=== PATIENT | female | born 1955 | race Caucasian/White ===

== ENCOUNTER 2018-01-24 09:10 | Emergency (ER) | payer OTHER ==
[2018-01-24] MEDS ORDERED: IPRATRPIUM/ALBUTEROL 0.5/2.5MG 3 ML NEBU. NEB ONE (09:15)
--- NOTE | 2018-01-24 09:26 | EKG ---
[address] [address] Test Date: 2018-01-24 Test Time: 09:20:46 Pat Name: BENITEZ HAYNES Department: Room: Gender: F Supervisor Lens Generating: NOREEN : 1955 Requested By: KILO DENG Order Number: [id number] Reading MD: Renan Cook MD Measurements Intervals [place] Rate: 70 P: 29 ND: 134 QRS: -3 QRSD: 84 T: 24 QT: 432 QTc: 470 Interpretive Statements SINUS RHYTHM Electronically Signed On 01-26-2018 11:43:59 CDT by Renan Cook MD
[2018-01-24 09:37] LABS: BASO # 0.1 x10^3/uL (0.0-0.2); BASO % 1 % (0-3); EOS # 0.1 x10^3/uL (0.0-0.7); EOS % 2 % (0-3); HEMATOCRIT 31.7 % (36.0-47.0); LYMPH # 0.7 x10^3/uL (1.0-4.8); LYMPH % 8 % (24-48); MEAN CORPUSCULAR HEMOGLOBIN 31 pg (25-35); MEAN CORPUSCULAR HGB CONC 32 g/dL (31-37); MEAN CORPUSCULAR VOLUME 99 fL (79-100); MONO # 0.8 x10^3/uL (0.0-1.1); MONO % 9 % (0-9); NEUT # 7.1 x10^3uL (1.8-7.7); NEUT % 81 % (31-73); PLATELET COUNT 179 x10^3/uL (140-400); RED BLOOD COUNT 3.19 x10^6/uL (3.50-5.40); RED CELL DISTRIBUTION WIDTH 17.9 % (11.5-14.5); WHITE BLOOD COUNT 8.7 x10^3/uL (4.0-11.0)
[2018-01-24 09:55] LABS: ALBUMIN 2.5 g/dL (3.4-5.0); CALCIUM 8.2 mg/dL (8.5-10.1); CREATININE 0.7 mg/dL (0.6-1.0); DIRECT BILIRUBIN 1.7 mg/dL (0.0-0.2); GFR 84.8; POTASSIUM 3.8 mmol/L (3.5-5.1); TOTAL BILIRUBIN 3.6 mg/dL (0.2-1.0); TOTAL PROTEIN 5.7 g/dL (6.4-8.2)
--- NOTE | 2018-01-24 10:08 | PHYS DOC ---
Adult General Chief Complaint Chief Complaint: SHORTNESS OF BREATH HPI HPI 62-year-old female who is never been seen in our hospital system who typically gets care at the [facility] presenting to the emergency department today with chest pain and shortness of breath. The patient is here with her who is helping with history. He reports that she has a history of liver disease and kidney disease. It is unknown at this time will condition to caused her liver or kidney disease distal history. I do not have access to the patient' s medical records. She presents today with chest pain and shortness of breath. On arrival she is hypoxic without labored breathing. The patient's symptoms started 4-5 days ago. He recently were discharged from the [facility] with oral pain medications and oxygen to use at home. The patient reports DNR/ DNI status. It is unclear the patient's goals of care. The patient's spouse states that if there is something we can do he would like us to do it. That being said, the patient clearly does not want to be intubated or have chest compressions and thus is DNR/DNI. Past medical history: History of liver disease and kidney disease, COPD, chf, anxiety/depression (on ssri). SH: hx of smoking and drinking. no ivdu allergies: nkda PSH:hx of bladder surgery Review of systems: Negative for abdominal pain fevers chills headache. She denies numbness weakness or tingling. She denies slurred speech or dysphasia. All other review of systems is negative unless otherwise noted in history of present illness. ED course: 62-year-old female presenting to the emergency department today with chest pain shortness of breath. On arrival the patient has hypoxic and was placed on facemask. The patient arrives by EMS. We transition the patient to BiPAP which improved the patient's oxygen saturations well. X-ray obtained along with blood work. IV established. EKG obtained and reviewed by myself shows sinus rhythm with a regular rate. ST segments are congruent. Not suggestive of ACS. Chest x-ray obtained which shows diffuse pulmonary opacification pulmonary edema versus multifocal pneumonia. Blood work shows normal white blood cell count. Chemistry panel shows elevated total bilirubin and low albumin along with elevated PT/INR consistent with the patient's known liver disease. pro BNP is elevated. Troponin is negative. The patient was placed on BiPAP here in the emergency department to improve the patient's oxygenation. IV antibiotics Lasix and corticosteroids initiated. Given the patient's complexity and history of eating at the [facility] we will transfer the patient to their facility for further treatment and care. Dr. Guardado accepts the pt for transfer and direct admission to their hospital. MELD score 20. Review of Systems Review of Systems SEE ABOVE. Current Medications Current Medications Current Medications Medications (Trade) Dose Ordered Sig/Brianna Start Time Stop Time Status Last Admin Dose Admin Albuterol/ Ipratropium (Duoneb) 3 ml 1X ONCE 01/24/18 09:15 01/24/18 09:16 UNV 01/24/18 09:31 3 ML Physical Exam Physical Exam SEE ABOVE Constitutional: Well developed, mildly malnourished, no acute distress, non- toxic appearance. HENT: Normocephalic, atraumatic, bilateral external ears normal, oropharynx moist, no oral exudates, nose normal. [] Eyes: PERRLA, EOMI, conjunctiva normal, no discharge. Neck: Normal range of motion, no tenderness, supple, no stridor. [] Cardiovascular:Heart rate regular rhythm, no murmur [] Lungs & Thorax: Mild crackles at the bases of the lungs. No wheezing on auscultation. Abdomen: Bowel sounds normal, soft, no tenderness, no masses, no pulsatile masses. [] Skin: Warm, dry, no erythema, no rash. Back: No tenderness, no CVA tenderness. [] Extremities: No tenderness, no cyanosis, no clubbing, ROM intact, no edema. [] Neurologic: Alert and oriented X 3, normal motor function, normal sensory function, no focal deficits noted. Psychologic: Affect normal, judgement normal, mood normal. [] Current Patient Data Vital Signs Vital Signs Date Time Temp Pulse Resp B/P (MAP) Pulse Ox O2 Delivery O2 Flow Rate FiO2 01/24/18 09:32 90 NonRebreather Mask 15.0 Lab Results Laboratory Tests Test 01/24/18 09:24 White Blood Count 8.7 x10^3/uL (4.0-11.0) Red Blood Count 3.19 x10^6/uL (3.50-5.40) L Hemoglobin 10.0 g/dL (12.0-15.5) L Hematocrit 31.7 % (36.0-47.0) L Mean Corpuscular Volume 99 fL (79-100) Mean Corpuscular Hemoglobin 31 pg (25-35) Mean Corpuscular Hemoglobin Concent 32 g/dL (31-37) Red Cell Distribution Width 17.9 % (11.5-14.5) H Platelet Count 179 x10^3/uL (140-400) Neutrophils (%) (Auto) 81 % (31-73) H Lymphocytes (%) (Auto) 8 % (24-48) L Monocytes (%) (Auto) 9 % (0-9) Eosinophils (%) (Auto) 2 % (0-3) Basophils (%) (Auto) 1 % (0-3) Neutrophils # (Auto) 7.1 x10^3uL (1.8-7.7) Lymphocytes # (Auto) 0.7 x10^3/uL (1.0-4.8) L Monocytes # (Auto) 0.8 x10^3/uL (0.0-1.1) Eosinophils # (Auto) 0.1 x10^3/uL (0.0-0.7) Basophils # (Auto) 0.1 x10^3/uL (0.0-0.2) Prothrombin Time 21.9 SEC (9.4-11.4) H Prothrombin Time INR 2.2 (0.9-1.1) H PTT 29 SEC (23-33) Troponin I Quantitative < 0.017 ng/mL (0-0.055) EKG EKG [] Radiology/Procedures Radiology/Procedures [] Course & Med Decision Making Course & Med Decision Making Pertinent Labs and Imaging studies reviewed. (See chart for details) [] Dragon Disclaimer Dragon Disclaimer This electronic medical record was generated, in whole or in part, using a voice recognition dictation system. Departure Departure: Impression: Primary Impression: Acute respiratory failure with hypoxia Disposition: XFER SHT-TRM HOSP () Condition: GUARDED Referrals: ANY PATEL (PCP) Critical Care Time Critical care time spent was 55 minutes exclusive of procedures. Time was spent evaluating the patient, ordering the administration of medications, reevaluating the patient, discussing with the admitting provider and documenting. KILO DENG MD Jan 24, 2018 10:08
[2018-01-24] MEDS ORDERED: PIP/TAZO PER PHARMACY MC PRN (10:15)
[2018-01-24] MEDS ORDERED: VANCOMYCIN PER PHARMACY MC PRN (10:15)
--- NOTE | 2018-01-24 10:25 | RAD ---
Single view chest 01/24/2018 Clinical indication: Shortness of breath, COPD. COMPARISON: None. FINDINGS: Cardiac silhouette are unremarkable. There are diffuse reticular and nodular opacities throughout both lungs. Mild perihilar and bibasilar peripheral consolidation. No pneumothorax. IMPRESSION: 1. Patchy reticular nodular opacities with areas of consolidation throughout both lungs. Findings may represent aspiration, multifocal pneumonia, pulmonary edema would be less likely. 2. More focal nodular opacity in the peripheral right lung base may represent additional site of inflammation/infection, however noncalcified nodule cannot be excluded. CT chest is recommended for further evaluation, if clinically indicated. Electronically signed by: J Carlos Solo MD (01/24/2018 10:21 AM) [facility]
[2018-01-24] MEDS ORDERED: methylPREDNISolone SOD SUCC PF 125 MG/2 ML VIAL. IV ONE (10:30)
[2018-01-24] MEDS ORDERED: VANCOMYCIN 1.5 GM in IV NORMAL SALINE 500ML 500 ML IV ONE (10:30)
[2018-01-24] MEDS ORDERED: FUROSEMIDE 40 MG/4 ML VIAL IVP ONE (10:30)
[2018-01-24] MEDS ORDERED: PIPERACILLIN/TAZOBACTAM 3.375 GM in IV NORMAL SALINE 50ML 50 ML IV ONE (10:30)
[2018-01-24] MEDS ORDERED: IV NORMAL SALINE 50ML 50 ML ONE (10:37)
[2018-01-24] MEDS ORDERED: PIPERACILLIN/TAZOBACTAM 3.375 GM VIAL IV ONE (10:37)
[2018-01-24 11:19] LABS: BGAS PH 7.5 (7.35-7.45)
[2018-01-24] MEDS ORDERED: IV NORMAL SALINE 500ML 500 ML ONE (11:21)
[2018-01-24] MEDS ORDERED: VANCOMYCIN 1 GM VIAL. ONE (11:21)
[2018-01-24 11:30] VITALS: BP 101/76
== END 2018-01-24 11:39 | disposition short-term general hospital (02) ==
LOC: ER 09:10
DX: J96.01 Acute respiratory failure with hypoxia (principal)
CPT/HCPCS: 36415; 36600; 71045; 80048; 80076; 82803; 83690; 83880; 84484; 85025; 85610; 85730; 93005; 94640; 94660; 96365; 96366; 96367; 96375; 99291; J1940; J2543; J2930; J3370; J7040; J7620